=== PATIENT | male | born 1995 | race Caucasian/White ===

== ENCOUNTER 2017-10-27 18:36 | Emergency (ER) | payer OTHER ==
[2017-10-27 19:32] VITALS: RESP 16
--- NOTE | 2017-10-27 20:43 | EDPHY ---
H & P Time Seen by Provider: 10/27/17 20:42 HPI/ROS: Chief complaint. Shoulder injury HPI. 22-year-old male was playing football and fell landing on his left shoulder sustaining pain to the shoulder. Did not hit his head or lose consciousness. No neck pain. No injury to elbow or wrist. No previous injury to the left shoulder. Patient is right handed. Injury occurred this evening ROS Constitutional. no fever/chills, no weakness Eyes. no problems with vision ENT. no sore throat, no nasal drainage Cardiovascular. no chest pain Respiratory. no shortness of breath, no cough Abdominal. no abdominal pain, no nausea/vomiting, no diarrhea . no problems urinating MS. Left shoulder pain Skin. no rash Lymph. no swollen glands Neuro. no headache, no dizziness, no difficulty walking or with speech Past Medical/Surgical History: Left ACL surgery Social History: Single, nonsmoker, no alcohol Smoking Status: Never smoked Physical Exam: General Appearance: Alert well-developed male mild distress vital signs stable Eyes: Pupils equal and round no pallor or injection. ENT, Mouth: Mucous membranes are moist. Respiratory: There are no retractions, lungs are clear to auscultation. Cardiovascular: Regular rate and rhythm. Gastrointestinal: Abdomen is soft and nontender, no masses, bowel sounds normal. Neurological: Awake and alert, sensory and motor exams grossly normal. Skin: Warm and dry, no rashes. Musculoskeletal: Neck is supple nontender. Extremities symmetrical, full range of motion. Tenderness over the AC joint left shoulder. No tenderness along the clavicle. No scapular tenderness. No tenderness to the shoulder itself. No evidence for dislocation. Psychiatric: Patient is oriented X 3, there is no agitation. Constitutional: Initial Vital Signs Temperature (C) 36.7 C 10/27/17 19:29 Heart Rate 67 10/27/17 19:29 Respiratory Rate 16 10/27/17 19:29 Blood Pressure 122/62 H 10/27/17 19:29 O2 Sat (%) 96 10/27/17 19:29 O2 Delivery Mode Room Air Allergies/Adverse Reactions: No Known Allergies Allergy (Unverified 10/27/17 19:31) Home Medications: Medication Instructions Recorded NK [No Known Home Meds] 10/27/17 Medical Decision Making - Diagnostics Imaging Results: X-ray left shoulder is normal. It may represent a small subtle AC separation. Clinically the patient has AC separation ED Course/Re-evaluation: Re-evaluation 9:05 p.m.--patient remained stable. He and I discussed imaging study results, treatment plan, criteria for return importance of follow-up and further evaluation. He expresses understanding and agreement Differential Diagnosis: Clinical AC separation. I considered fracture, dislocation, sprain Departure - Departure Disposition: Home, Routine, Self-Care Clinical Impression: AC separation Qualifiers: Encounter type: initial encounter Laterality: left Qualified Code(s): S43.102A - Unspecified dislocation of left acromioclavicular joint, initial encounter Condition: Good Instructions: Acromioclavicular Separation (ED) Additional Instructions: Ice to sore area next 24-48 hours. Ibuprofen 600 mg every 6 hr for discomfort. Sling until comfortable without. Return for worsening symptoms. Re- evaluation in 7-10 days if not improving Referrals: LARISSA MYERS MD [Other] - As per Instructions Miguel Tolbert MD [Medical Doctor] - 5-7 days, if not improved
[2017-10-27 21:30] VITALS: BP 115/78; PULSE 78; TEMP 98.4; O2SAT 98
== END 2017-10-27 21:30 | disposition home or self-care (01) ==
DX: S43.102A Unspecified dislocation of left acromioclavicular joint, initial encounter (principal); W18.39XA Other fall on same level, initial encounter; Y93.61 Activity, american tackle football